=== PATIENT | female | born 1995 | race African-American/Black ===

== ENCOUNTER 2020-05-05 11:14 | Emergency (ER) | payer OTHER ==
[~2020-05-05] VITALS: Ht 167.6 cm; Wt 61.2 kg
[2020-05-05 12:00] VITALS: BP 117/78
--- NOTE | 2020-05-05 12:44 | NUR ---
Patient discharged to home in stable condition. Written and verbal after care instructions given. Patient verbalizes understanding of instruction.
== END 2020-05-05 12:44 | disposition home or self-care (01) ==
LOC: ER 11:19
DX: Z03.818 Encounter for observation for suspected exposure to other biological agents ruled out (principal)
CPT/HCPCS: 99283; C9803; U0003